=== PATIENT | female | born 1975 | race Caucasian/White ===

== ENCOUNTER → 2017-04-07 | Outpatient (CLI) | payer OTHER ==
[~2017-04-07] MED LIST: CEFTIN500 M1 PO; CHOLESTYRAM4 GM/9 GM PO; HYDROCODONE BIT1 T11 PO; IRBESARTAN150 MG PO; LEXAPRO10 MG PO; LISINOPRIL10 MG PO; LISINOPRIL40 MG PO; OMEPRAZOLE DR20 MG PO; VELIVET PO
== END | disposition home or self-care (01) ==
LOC: US 15:30
DX: M79.605 Pain in left leg (principal); R60.0 Localized edema; M79.89 Other specified soft tissue disorders

== ENCOUNTER 2017-08-18 18:06 | Emergency (ER) | payer OTHER ==
[~2017-08-18] VITALS: Ht 167.6 cm; Wt 113.4 kg
[2017-08-18 18:10] VITALS: BP 147/85
[2017-08-18] MEDS ORDERED: NAPROSYN500 MG PO (19:54)
== END 2017-08-18 20:03 | disposition home or self-care (01) ==
LOC: ED 18:06
DX: S60.221A Contusion of right hand, initial encounter (principal); S69.91XA Unspecified injury of right wrist, hand and finger(s), initial encounter; Z79.899 Other long term (current) drug therapy; W01.198A Fall on same level from slipping, tripping and stumbling with subsequent striking against other object, initial encounter; Y93.89 Activity, other specified; Y92.89 Other specified places as the place of occurrence of the external cause; Y99.9 Unspecified external cause status

== ENCOUNTER → 2017-11-08 | Outpatient (CLI) | payer OTHER ==
[~2017-11-08] MED LIST changes: +NAPROSYN500 MG PO
== END | disposition home or self-care (01) ==
LOC: RAD 10:31
DX: M54.5 Low back pain (principal); M79.604 Pain in right leg; R20.0 Anesthesia of skin

== ENCOUNTER → 2017-11-24 | Outpatient (CLI) | payer OTHER | END | disposition home or self-care (01) | LOC: MAMMO 11-16 15:00 | DX: Z12.31 Encounter for screening mammogram for malignant neoplasm of breast (principal) ==

== ENCOUNTER → 2017-12-01 | Outpatient (CLI) | payer OTHER | END | disposition home or self-care (01) | LOC: US 01:35 | DX: R92.8 Other abnormal and inconclusive findings on diagnostic imaging of breast (principal); N63.0 Unspecified lump in unspecified breast ==

== ENCOUNTER 2018-01-10 10:24 | Emergency (ER) | payer OTHER ==
[~2018-01-10] VITALS: Wt 117.5 kg
[2018-01-10 10:37] VITALS: BP 139/76
[2018-01-10 11:19] LABS: BILIRUBIN NEGATIVE (NEGATIVE); BLOOD 3+ (NEGATIVE); CLARITY CLOUDY (CLEAR); COLOR YELLOW (YELLOW); GLUCOSE NEGATIVE (NEGATIVE); KETONE NEGATIVE (NEGATIVE); LEUKO ESTERASE 2+ (NEGATIVE); NITRITE POSITIVE (NEGATIVE); SPECIFIC GRAVITY <= 1.005 (1.005-1.030)
[2018-01-10 11:32] LABS: BACTERIA 1+; WBC TNTC wbc/hpf (0-5)
[2018-01-10] MEDS ORDERED: SEPTDS PO (11:36)
[2018-01-10] MEDS ORDERED: PYRIDIUM200 M1 PO (11:36)
== END 2018-01-10 11:38 | disposition home or self-care (01) ==
LOC: ED 10:24
PROVIDERS: Nurse Practitioner Family
DX: N39.0 Urinary tract infection, site not specified (principal); R31.9 Hematuria, unspecified; Z79.899 Other long term (current) drug therapy

== ENCOUNTER → 2018-06-08 | Outpatient (CLI) | payer OTHER ==
[~2018-06-08] MED LIST changes: +CYCLOBENZAPRINE10 MG PO; +FIBRIK CAPSULE1 EACH PO; +MIRENA1 EACH IY; +OSTERA TABLET1 EACH PO; +PYRIDIUM200 M1 PO; +SEPTDS PO; +SINGULAIR4 MG PO
== END | disposition home or self-care (01) ==
LOC: MAMMO 08:38
DX: N63.0 Unspecified lump in unspecified breast (principal)

== ENCOUNTER → 2018-06-28 | Outpatient (CLI) | payer OTHER | END | disposition home or self-care (01) | LOC: US 14:58 | DX: N93.9 Abnormal uterine and vaginal bleeding, unspecified (principal) ==

== ENCOUNTER → 2018-09-20 | Outpatient (CLI) | payer OTHER ==
[2018-09-20 12:11] LABS: BASO % 0.3 % (0.0-1.0); EOS # 0.1 10*3/uL (0.0-0.4); EOS % 1.3 % (1.0-4.0); HEMATOCRIT 42.3 % (37.0-47.0); HEMOGLOBIN 13.8 g/dl (12.0-16.0); LYMPH # 2.1 10*3/uL (1.3-4.4); LYMPH % 29.7 % (27.0-41.0); MEAN CELL VOLUME 87.9 fl (81.0-99.0); MEAN CORPUSCULAR HGB 28.7 pg (27.0-31.0); MEAN CORPUSCULAR HGB CONC 32.6 g/dl (33.0-37.0); MEAN PLATELET VOLUME 9.6 fl (9.6-12.3); MONO # 0.6 10*3/uL (0.1-1.0); MONO % 8.6 % (3.0-9.0); NEUT # 4.2 10*3/uL (2.3-7.9); NEUT % 59.8 % (47.0-73.0); PLATELET COUNT AUTOMATED 277 10*3/uL (130-400); RED BLOOD COUNT 4.81 10*6/uL (4.10-5.10); WHITE BLOOD COUNT 7.1 10*3/uL (4.8-10.8)
[2018-09-20 12:49] LABS: B-hCG (QUALITATIVE) NEGATIVE (NEGATIVE); CHLORIDE 108 mmol/L (98-107); POTASSIUM 4.2 mmol/L (3.5-5.1); SODIUM 139 mmol/L (136-145)
[2018-09-20 12:50] LABS: ACT PARTIAL THROMBO TIME 25.9 SECONDS (20.8-31.5)
== END | disposition home or self-care (01) ==
LOC: LAB 10:06
PROVIDERS: Podiatrist
DX: M76.61 Achilles tendinitis, right leg (principal); G57.81 Other specified mononeuropathies of right lower limb

== ENCOUNTER 2018-09-21 17:46 | Emergency (ER) | payer OTHER ==
[~2018-09-21] VITALS: Wt 113.4 kg
[2018-09-21 17:46] VITALS: BP 140/74
[~2018-09-21 17:46] MED LIST changes: -CYCLOBENZAPRINE10 MG PO
[2018-09-21] MEDS ORDERED: CYCLOBENZAPRINE10 MG PO (18:43)
[2018-09-21] MEDS ORDERED: NAPROSYN500 MG PO (18:43)
== END 2018-09-21 18:53 | disposition home or self-care (01) ==
LOC: ED 17:46
DX: M54.2 Cervicalgia (principal); M54.6 Pain in thoracic spine; Z79.899 Other long term (current) drug therapy

== ENCOUNTER → 2018-09-27 | Outpatient (CLI) | payer OTHER ==
[~2018-09-27] MED LIST changes: +CYCLOBENZAPRINE10 MG PO
== END | disposition home or self-care (01) ==
LOC: RAD 11:03
DX: M40.292 Other kyphosis, cervical region (principal); M47.892 Other spondylosis, cervical region

== ENCOUNTER → 2018-09-28 | Day surgery (SDC) | payer OTHER ==
[2018-09-20 10:39] VITALS: BP 135/92
[~2018-09-28] MED LIST changes: +DOXYCYCLINE100 M3 PO; +Motrin,Rufen800 MG PO; +NORCO 5-325 TA1 EACH PO; +ULTRAM50 MG PO; +VENLAFAXINE HYD75 M3 PO; +XARELTO10 MG PO
== END | disposition home or self-care (01) ==
DX: S86.011A Strain of right Achilles tendon, initial encounter (principal); Z53.8 Procedure and treatment not carried out for other reasons; X58.XXXA Exposure to other specified factors, initial encounter; Y93.89 Activity, other specified; Y92.89 Other specified places as the place of occurrence of the external cause; Y99.8 Other external cause status

== ENCOUNTER → 2018-09-29 | Outpatient (CLI) | payer OTHER ==
[~2018-09-29] MED LIST changes: -DOXYCYCLINE100 M3 PO; -Motrin,Rufen800 MG PO; -NORCO 5-325 TA1 EACH PO; -ULTRAM50 MG PO; -VENLAFAXINE HYD75 M3 PO; -XARELTO10 MG PO
== END | disposition home or self-care (01) ==
LOC: RAD 10:49
DX: M25.511 Pain in right shoulder (principal)

== ENCOUNTER → 2018-11-16 | Day surgery (SDC) | payer OTHER ==
[~2018-11-16] VITALS: Ht 167.6 cm; Wt 113.4 kg
[~2018-11-16] MED LIST changes: +DOXYCYCLINE100 M3 PO; +Motrin,Rufen800 MG PO; +NORCO 5-325 TA1 EACH PO; +ULTRAM50 MG PO; +VENLAFAXINE HYD75 M3 PO; +XARELTO10 MG PO
--- NOTE | ~2018-11-16 | O ---
[place], [place] OPERATIVE NOTE NAME: RAVEN BURK [facility] #: [id number] UNIT #: [id number] ROOM: DOCTOR: MIL JIMMY JUAREZ BIRTHDATE: [birth year] DOS: 11/16/2018 SURGEON: Dr. Jaeger. OB GYN: 1. Pedro Morillo, fellow. 2. Sae Cooper, PGY-1. PREOPERATIVE DIAGNOSES: 1. Achilles tendinopathy. 2. Posterior calcaneal exostosis of the right. POSTOPERATIVE DIAGNOSES: 1. Achilles tendinopathy. 2. Posterior calcaneal exostosis of the right. PROCEDURE: 1. Bony debridement of the right calcaneus. 2. Deep compartment tendon transfer of the flexor hallucis longus tendon to the superficial compartment into the calcaneus of the right FHL transfer. DESCRIPTION OF PROCEDURE: The patient was seen in the preoperative holding area, appropriate site marking was performed. She and her family members agreed. She agreed to perioperative management and she agreed with the site marking as well. She was brought in the OR and placed on well-padded OR table where anesthesia was achieved. Once the anesthesia was achieved, appropriate timeout was performed, everybody in the room concurred with the timeout. Her right foot and leg were prepped and draped in usual sterile fashion. Hemostasis was accomplished by the mid-thigh tourniquet, which was inflated to 300 mmHg. Attention was directed to the right lower extremity. PROCEDURE #1: BONY DEBRIDEMENT OF THE RIGHT POSTERIOR CALCANEUS: Attention directed to posterior medial aspect of the right lower leg. Leg was externally rotated. A 6 cm incision was made posteromedially along the medial border Achilles tendon down to the calcaneus approximately 6 cm. It was deepened in the same plane using sharp and blunt dissection avoiding neurovascular structures. It was carried down to the Achilles tendon. At this time, there was some fibrotic diseased area of the Achilles tendon on the right. This was palpated and clinically until the diseased area was identified and excision of the Achilles tendon completely was performed, removing the diseased portion of fibrotic area of the Achilles tendon from the calcaneus and the proximal insertional pathological areas. At this point in time, this was carried down to bone, and under radiographs, the bone spurring was noted and using a large osteotome mallet, the bone was debrided. Bone was sent for pathology and the bone was completely excised from the all fibrous tissue, all inflammatory tissue as well as bone and degeneration of the posterior right calcaneus. PROCEDURE #2: TRANSFER OF THE FLEXOR HALLUCIS LONGUS TENDON FROM THE DEEP COMPARTMENT TO THE SUPERFICIAL COMPARTMENT INTO THE CALCANEUS: Attention was directed to the posterior medial incision site. This incision was deepened to [place], [place] OPERATIVE NOTE NAME: RAVEN BURK UNIT #: [id number] ROOM: DOCTOR: JIMMY JAEGER DPM BIRTHDATE: [birth year] the deep compartment of the right lower leg, where the deep fascia was incised. At this time, the flexor hallucis longus muscle and tendon were identified. Flexion of the great toe was identified assuring that this was the flexor hallucis longus tendon. At this point in time, dissection was carried more distal and deep protecting neurovascular bundles. At this point in time, with a great pull on the great toe and plantar flexion of the ankle joint, the maximal length of the flexor hallucis longus tendon was identified and this was tenotomized. At this point in time, with this tenotomized, this FHL tendon had a whipstitch applied by the Arthrex material, and at this point in time, under fluoroscopy guidance, a guidewire was inserted to the posterior aspect of the calcaneus for a transfer from the deep compartment to the superficial compartment of the right calcaneus. At this point in time, the flexor hallucis longus tendon transverse inserted dorsal to plantarly in the calcaneus. The ankle joint was held at 90 degrees with slight plantarflexion and tension. Her significant physiological pull on the FHL tendon at this time is 6.0 x 15 mm Arthrex interference screw was inserted into the calcaneus and fixated wonderfully with good tension on the area. Next, the remaining stump of the Achilles tendon was tenodesed to the flexor hallucis longus muscle belly. The area was flushed with copious amounts of sterile saline. Deep tissues were closed using 0 Vicryl and skin was closed using 2-0 nylon. The surgical wounds were dressed with Betadine-soaked Adaptic, 4 x 4s, Sherry in a sterile compression fashion. The tourniquet was deflated and good cap refill time was noted to return to all digits of right. A univalve BK cast was applied to her right lower extremity. She tolerated the procedure and anesthesia well and left the OR with vital signs stable and vascular status intact. JIMMY JAEGER DPM CM:OPRECORD:OPERATIVE NOTE [id number] JIMMY JAEGER DPM 11/30/18 0812 interface
--- NOTE | ~2018-11-16 | WRIGHTHP ---
[place], [place] PATIENT HISTORY AND PHYSICAL EXAM [id number] UN[facility] #: [id number] ROOM: DOCTOR: JIMMY JAEGER DPM BIRTHDATE: [birth year] DOS: 11/16/2018 INDICATIONS: The patient was seen for a longstanding foot pathology. More recently, she has a nonresponsive Achilles tendon and posterior calcaneal spur that is causing pain upon standing, ambulation and activity. The patient has failed all nonoperative care. At this point in time, consents for surgery of her right lower extremity. Surgery for debridement for the Achilles tendon, flexor hallucis longus tendon transfer, bone debridement right posterior heel, possible sural nerve decompression. With this in mind, she is aware of pros, cons, risks and benefits, overcorrection, undercorrection, recurrence, numbness, infection, failure. The patient states she is slightly better from previous surgery done by Dr. Ruff, but now the posterior heel is the area of most pain on the right. With this in mind, she understands the consent, she agrees to it. She understands there is artery, nerve, vein, tendon, ligament, bone, potential complications, anything can happen, nothing should happen. She understands the perioperative management. She understands using anticoagulation therapy, she agreed with that. She agreed to site marking and she also agreed with the consent as well as perioperative management. JIMMY JAEGER DPM CM:HISPHYS:PATIENT HISTORY AND PHYSICAL EXAMINATION [id number] JIMMY JAEGER DPM 11/30/18 0810 interface
--- NOTE | ~2018-11-16 | WRIGHTHP ---
[place], [place] PATIENT HISTORY AND PHYSICAL EXAM [id number] #: [id number] ROOM: DOCTOR: JIMMY JAEGER DPM BIRTHDATE: [birth year] DOS: 11/16/2018 LOWER EXTREMITY PHYSICAL EXAM VASCULAR: She has palpable pedal pulses 2/4 DP and PT bilaterally. Good cap refill time. NEUROLOGIC: She has intact epicritic sensation. She has some mild changes along the sural nerve in the right, but today she said it does not bother much and it is more of a musculoskeletal pain that she is experiencing on the right. DERMATOLOGIC: She has well-healed scars. Skin integrity is intact. MUSCULOSKELETAL: She has pain on palpation of the posterior medial calcaneus, posterior calcaneus and along the Achilles tendon approximately 4 cm proximal from the insertion of the calcaneus of the right. Orthopedic exam, the MRI demonstrates tendinopathy of the Achilles tendon as well as posterior bony spurring and pathology of the right. JIMMY JAEGER DPM CM:HISPHYS:PATIENT HISTORY AND PHYSICAL EXAMINATION 0350 JIMMY JAEGER DPM 11/17/18 0525 interface
[2018-11-16 08:00] VITALS: BP 158/92
[2018-11-16 10:40] VITALS: BP 143/88
[2018-11-16 10:55] VITALS: BP 132/66
[2018-11-16 11:10] VITALS: BP 128/66
[2018-11-16 11:24] VITALS: BP 171/86
[2018-11-16 11:35] VITALS: BP 137/73
== END | disposition home or self-care (01) ==
LOC: SDC 11-09 11:00
DX: M19.071 Primary osteoarthritis, right ankle and foot (principal); M76.61 Achilles tendinitis, right leg; M77.31 Calcaneal spur, right foot; I10 Essential (primary) hypertension; K21.9 Gastro-esophageal reflux disease without esophagitis; J45.909 Unspecified asthma, uncomplicated; F41.9 Anxiety disorder, unspecified; F32.9 Major depressive disorder, single episode, unspecified; E66.01 Morbid (severe) obesity due to excess calories; Z88.8 Allergy status to other drugs, medicaments and biological substances; Z98.890 Other specified postprocedural states; Z79.899 Other long term (current) drug therapy; Z68.41 Body mass index [BMI] 40.0-44.9, adult

== ENCOUNTER → 2019-11-13 | Outpatient (CLI) | payer OTHER | END | disposition home or self-care (01) | LOC: MAMMO 00:30 | DX: Z12.39 Encounter for other screening for malignant neoplasm of breast (principal) ==

== ENCOUNTER 2019-12-03 09:18 | Emergency (ER) | payer OTHER ==
[~2019-12-03] VITALS: Ht 167.6 cm; Wt 122.5 kg
[2019-12-03 09:21] VITALS: BP 140/76
[2019-12-03 10:11] LABS: BILIRUBIN NEGATIVE (NEGATIVE); BLOOD 3+ (NEGATIVE); CLARITY CLOUDY (CLEAR); COLOR YELLOW (YELLOW); GLUCOSE NEGATIVE (NEGATIVE); KETONE NEGATIVE (NEGATIVE); SPECIFIC GRAVITY 1.015 (1.005-1.030)
[2019-12-03 10:12] LABS: LEUKO ESTERASE 2+ (NEGATIVE); NITRITE NEGATIVE (NEGATIVE); UROBILINOGEN 0.2 E.U./dl (0.2-1.0)
[2019-12-03 10:17] LABS: BACTERIA 4+; EPITHELIAL CELLS 35-40; RBC TNTC rbc/hpf (0-2); WBC TNTC wbc/hpf (0-5)
[2019-12-03] MEDS ORDERED: SEPTDS PO (10:22)
== END 2019-12-03 10:24 | disposition home or self-care (01) ==
LOC: ED 09:18
PROVIDERS: Nurse Practitioner Family
DX: N39.0 Urinary tract infection, site not specified (principal); Z79.899 Other long term (current) drug therapy

== ENCOUNTER → 2020-04-09 | Outpatient (CLI) | payer OTHER | END | disposition home or self-care (01) | LOC: US 01:02 | DX: N88.8 Other specified noninflammatory disorders of cervix uteri (principal); Z90.721 Acquired absence of ovaries, unilateral ==

== ENCOUNTER → 2020-08-01 | Outpatient (CLI) | payer OTHER ==
[~2020-08-01] MED LIST changes: +HYDROCODONE-AC1 EAC1 PO; +IBU800 M1 PO; +Synthroid,Levo50 MCG PO; +WELLBUTRIN SR150 MG PO
== END | disposition home or self-care (01) ==
LOC: COVID19 00:26
PROVIDERS: ATTEND Obstetrics & Gynecology
DX: Z01.812 Encounter for preprocedural laboratory examination (principal); Z20.828 Contact with and (suspected) exposure to other viral communicable diseases

== ENCOUNTER 2020-08-06 08:35 | Inpatient (IN) | payer OTHER ==
[2020-08-01 14:50] VITALS: BP 165/100
[~2020-08-06] VITALS: Ht 167.6 cm; Wt 125.6 kg
[2020-08-06] VITALS (8 sets, daily range): BP systolic 122–155; BP diastolic 68–91
[~2020-08-06 08:35] MED LIST changes: -HYDROCODONE-AC1 EAC1 PO; -IBU800 M1 PO
--- NOTE | 2020-08-06 14:05 | NUR ---
Time: 1404 A 44 year old FEMALE admitted to under services of ALEXANDRA KIDD DO. Pt. arrived via stretcher from [place]. Chief complaint: S/P HYSTERECTOMY . MARIA LUZ NIÑO
--- NOTE | 2020-08-06 18:07 | NUR ---
PT REQUESTED AND GIVEN NORCO FOR C/O ABD PAIN PT RATES PAIN 04/19 WILL MONITOR
--- NOTE | 2020-08-06 20:30 | NUR ---
RESTING WITH HOB ELEVATED, WATCHING TV. RESPIRATIONS EASY. LUNGS DIMINISHED, CLEAR. PULSE OX 95% RA. ABD SOFT WITH NORMO BS, 4 SURG SITES NOTED WITH GLUE INTACT. ESPINOSA PATENT. SCDS APPLIED TO BLE. IV FLUIDS INFUSING PER ORDER. CALL LIGHT WITHIN REACH. NO VOICED COMPLAINTS
--- NOTE | 2020-08-06 23:14 | NUR ---
24 HR chart check completed.
--- NOTE | 2020-08-06 23:24 | NUR ---
NORCO PROVIDED PER PRN ORDER FOR COMPLAINTS OF ABD PAIN RATING A 6. CALL LIGHT WITHIN REACH. WILL MONITOR
[2020-08-07] VITALS: BP 131/84
--- NOTE | 2020-08-07 00:15 | NUR ---
MEDS APPEAR EFFECTIVE. RESTING WITH EYES CLOSED. RESPIRATIONS EASY. VSS. IV FLUIDS MAINTAINED. CALL LIGHT WITHIN REACH
--- NOTE | 2020-08-07 02:45 | NUR ---
DROWSY. ROUTINE TORADOL PROVIDED.
--- NOTE | 2020-08-07 05:20 | NUR ---
MEDICATED WITH NORCO PER PRN ORDER FOR COMPLAINTS OF ABD SORENESS RATING A 5. CALL LIGHT WITHIN REACH. WILL MONITOR
--- NOTE | 2020-08-07 06:00 | NUR ---
STATES RELIEF FROM EARLIER TALLULA.
--- NOTE | 2020-08-07 06:10 | NUR ---
ESPINOSA D/C'D PER ORDER. PATIENT TOLERATED WELL. SCANT AMOUNT OF OLD [place] BLOOD NOTED ON PAD. ASSISTED TO BR TO VOID. PATIENT WISHES TO SHOWER, ASSISTED TO SHOWER BENCH AND PROVIDED WITH ALL NECESSARY SUPPLIES. INSTRUCTED TO CALL FOR ASSIST IF NECESSARY OR WHEN READY TO RETURN TO BED. VOICED UNDERSTANDING
[2020-08-07 06:37] LABS: BASO % 0.1 % (0.0-1.0); EOS % 0.1 % (1.0-4.0); HEMATOCRIT 41.7 % (37.0-47.0); LYMPH # 2.2 10*3/uL (1.3-4.4); MEAN CELL VOLUME 89.5 fl (81.0-99.0); MEAN CORPUSCULAR HGB 28.5 pg (27.0-31.0); MEAN CORPUSCULAR HGB CONC 31.9 g/dl (33.0-37.0); MEAN PLATELET VOLUME 9.8 fl (9.6-12.3); MONO # 1.2 10*3/uL (0.1-1.0); MONO % 9.9 % (3.0-9.0); NEUT # 8.7 10*3/uL (2.3-7.9); NEUT % 71.6 % (47.0-73.0); PLATELET COUNT AUTOMATED 331 10*3/uL (130-400); RED BLOOD COUNT 4.66 10*6/uL (4.10-5.10); RED CELL DISTRI WIDTH 12.2 % (0-14.5); WHITE BLOOD COUNT 12.1 10*3/uL (4.8-10.8)
--- NOTE | 2020-08-07 07:50 | NUR ---
PATIENT RETURNED TO BED. DR HANEY PRESENT TO ASSESS PATIENT AND DISCUSS PLAN OF CARE. PER DR HANEY, OK TO D/C IVF. PATIENT OK TO BE D/C'D TODAY
[2020-08-07] MEDS ORDERED: HYDROCODONE-AC1 EAC1 PO (08:11)
[2020-08-07] MEDS ORDERED: IBU800 M1 PO (08:11)
--- NOTE | 2020-08-07 10:50 | NUR ---
Discharge instructions reviewed with patient/family. Patient receptive and verbalizes understanding. Follow-up care arranged. Written instructions given to patient/family. EZEKIEL NOLASCO
== END 2020-08-07 10:50 | disposition home or self-care (01) | DRG 513 ==
LOC: SDC 08:35 → 5E 08:47 → SDC 09:30 → 5E 08-07 10:50
PROVIDERS: ADMIT Obstetrics & Gynecology; ATTEND Obstetrics & Gynecology
PROC: 0UT98ZZ Resection of Uterus, Via Natural or Artificial Opening Endoscopic (ICD-10-PCS; principal; 2020-08-06)
DX: N93.9 Abnormal uterine and vaginal bleeding, unspecified (principal); N83.202 Unspecified ovarian cyst, left side; G89.29 Other chronic pain; R10.2 Pelvic and perineal pain; Z79.899 Other long term (current) drug therapy

== ENCOUNTER → 2021-01-06 | Outpatient (CLI) | payer OTHER ==
[~2021-01-06] MED LIST changes: +HYDROCODONE-AC1 EAC1 PO; +IBU800 M1 PO
== END | disposition home or self-care (01) ==
LOC: MAMMO 00:09
PROVIDERS: ATTEND Internal Medicine
DX: Z12.31 Encounter for screening mammogram for malignant neoplasm of breast (principal); N64.89 Other specified disorders of breast

== ENCOUNTER 2021-07-09 05:27 | Inpatient (IN) | payer OTHER ==
[~2021-07-09] VITALS: Wt 117.0 kg
[2021-07-09 05:28] VITALS: BP 131/79
[2021-07-09 06:53] LABS: HEMATOCRIT 45.2 % (37.0-47.0); LYMPH % 18.1 % (27.0-41.0); MEAN CELL VOLUME 85.9 fl (81.0-99.0); MEAN CORPUSCULAR HGB 29.3 pg (27.0-31.0); MEAN CORPUSCULAR HGB CONC 34.1 g/dl (33.0-37.0); MEAN PLATELET VOLUME 10.2 fl (9.6-12.3); MONO # 0.3 10*3/uL (0.1-1.0); MONO % 5.8 % (3.0-9.0); NEUT # 4.1 10*3/uL (2.3-7.9); NEUT % 75.7 % (47.0-73.0); PLATELET COUNT AUTOMATED 145 10*3/uL (130-400); RED BLOOD COUNT 5.26 10*6/uL (4.10-5.10); RED CELL DISTRI WIDTH 12.4 % (0-14.5); WHITE BLOOD COUNT 5.4 10*3/uL (4.8-10.8)
[2021-07-09 07:05] LABS: ALBUMIN 3.3 gm/dl (3.1-4.5); ALKALINE PHOSPHATASE 98 U/L (45-117); BUN 5 mg/dl (7-24); CHLORIDE 100 mmol/L (98-107); CPK 402 U/L (26-192); CREATININE 0.84 mg/dL (0.55-1.02); LDH 354 U/L (84-246); POTASSIUM 2.9 mmol/L (3.5-5.1); SGOT/AST 90 IU/L (3-35); SGPT/ALT 80 U/L (12-78); SODIUM 132 mmol/L (136-145); TOTAL PROTEIN 8.1 gm/dL (6.4-8.2)
[2021-07-09 07:24] VITALS: BP 122/89
[2021-07-09 13:16] VITALS: BP 111/74
[2021-07-09] MEDS ORDERED: NEURONTIN300 MG PO (13:42)
[2021-07-09] MEDS ORDERED: ZOLPIDEM10 MG PO (13:43)
[2021-07-10] VITALS: BP 114/67
[2021-07-10 07:02] LABS: HEMATOCRIT 42.8 % (37.0-47.0); LYMPH # 1.1 10*3/uL (1.3-4.4); MEAN CELL VOLUME 86.6 fl (81.0-99.0); MEAN CORPUSCULAR HGB 28.9 pg (27.0-31.0); MEAN CORPUSCULAR HGB CONC 33.4 g/dl (33.0-37.0); MEAN PLATELET VOLUME 10.1 fl (9.6-12.3); MONO # 0.5 10*3/uL (0.1-1.0); MONO % 12.4 % (3.0-9.0); NEUT # 2.1 10*3/uL (2.3-7.9); NEUT % 56.3 % (47.0-73.0); PLATELET COUNT AUTOMATED 155 10*3/uL (130-400); RED BLOOD COUNT 4.94 10*6/uL (4.10-5.10); RED CELL DISTRI WIDTH 12.6 % (0-14.5); WHITE BLOOD COUNT 3.6 10*3/uL (4.8-10.8)
[2021-07-10 07:12] LABS: BUN 9 mg/dl (7-24); CHLORIDE 106 mmol/L (98-107); CREATININE 0.85 mg/dL (0.55-1.02); POTASSIUM 3.2 mmol/L (3.5-5.1); SODIUM 138 mmol/L (136-145)
[2021-07-10 08:00] VITALS: BP 110/90
[2021-07-10 12:00] VITALS: BP 108/56; BP 120/54
[2021-07-10 16:00] VITALS: BP 113/72
[2021-07-10 20:00] VITALS: BP 103/66
[2021-07-11 00:57] VITALS: BP 111/67
[2021-07-11 08:00] VITALS: BP 107/64
[2021-07-11] MEDS ORDERED: CHOLESTYRAMINE P4 GM PO (09:41)
[2021-07-11 12:00] VITALS: BP 114/67
[2021-07-11 14:24] LABS: BASO % 0.3 % (0.0-1.0); HEMATOCRIT 42.3 % (37.0-47.0); LYMPH # 0.8 10*3/uL (1.3-4.4); LYMPH % 22.2 % (27.0-41.0); MEAN CELL VOLUME 86.2 fl (81.0-99.0); MEAN CORPUSCULAR HGB 29.1 pg (27.0-31.0); MEAN CORPUSCULAR HGB CONC 33.8 g/dl (33.0-37.0); MEAN PLATELET VOLUME 10.2 fl (9.6-12.3); MONO # 0.3 10*3/uL (0.1-1.0); MONO % 9.6 % (3.0-9.0); NEUT # 2.4 10*3/uL (2.3-7.9); NEUT % 67.3 % (47.0-73.0); RED BLOOD COUNT 4.91 10*6/uL (4.10-5.10); RED CELL DISTRI WIDTH 12.4 % (0-14.5); WHITE BLOOD COUNT 3.6 10*3/uL (4.8-10.8)
[2021-07-11 14:34] LABS: PLATELET COUNT AUTOMATED 209 10*3/uL (130-400)
[2021-07-11 14:40] LABS: BUN 10 mg/dl (7-24); CHLORIDE 104 mmol/L (98-107); CREATININE 0.95 mg/dL (0.55-1.02); POTASSIUM 3.3 mmol/L (3.5-5.1); SODIUM 138 mmol/L (136-145)
[2021-07-11 16:00] VITALS: BP 112/56
[2021-07-11 20:00] VITALS: BP 117/75; BP 133/85
[2021-07-12] VITALS: BP 118/74; BP 137/80
[2021-07-12 08:00] VITALS: BP 118/70
[2021-07-12 12:00] VITALS: BP 114/52
[2021-07-12 16:00] VITALS: BP 123/64
[2021-07-12 20:00] VITALS: BP 120/80
[2021-07-13] VITALS: BP 112/76
[2021-07-13 06:32] LABS: BASO % 0.2 % (0.0-1.0); HEMATOCRIT 39.3 % (37.0-47.0); LYMPH # 1.8 10*3/uL (1.3-4.4); LYMPH % 28.8 % (27.0-41.0); MEAN CELL VOLUME 86.9 fl (81.0-99.0); MEAN CORPUSCULAR HGB CONC 33.3 g/dl (33.0-37.0); MEAN PLATELET VOLUME 10.3 fl (9.6-12.3); MONO # 0.9 10*3/uL (0.1-1.0); MONO % 14.2 % (3.0-9.0); NEUT # 3.5 10*3/uL (2.3-7.9); NEUT % 55.5 % (47.0-73.0); PLATELET COUNT AUTOMATED 246 10*3/uL (130-400); RED BLOOD COUNT 4.52 10*6/uL (4.10-5.10); RED CELL DISTRI WIDTH 12.1 % (0-14.5); WHITE BLOOD COUNT 6.3 10*3/uL (4.8-10.8)
[2021-07-13 06:54] LABS: CHLORIDE 107 mmol/L (98-107); POTASSIUM 3.3 mmol/L (3.5-5.1); SODIUM 140 mmol/L (136-145)
[2021-07-13 07:03] LABS: ALBUMIN 2.7 gm/dl (3.1-4.5); ALKALINE PHOSPHATASE 64 U/L (45-117); BUN 13 mg/dl (7-24); CREATININE 0.68 mg/dL (0.55-1.02); SGOT/AST 34 IU/L (3-35); SGPT/ALT 61 U/L (12-78); TOTAL PROTEIN 6.3 gm/dL (6.4-8.2)
[2021-07-13 08:00] VITALS: BP 122/83
[2021-07-13 12:00] VITALS: BP 126/80
[2021-07-13] MEDS ORDERED: DECADRON4 MG PO (15:39)
== END 2021-07-13 18:25 | disposition home or self-care (01) | DRG 137 ==
LOC: ED 05:27 → EDHOLD 10:59 → 4E 10:59 → EDHOLD 11:03 → 4E 21:42
PROVIDERS: Emergency Medicine; Internal Medicine Nephrology; Podiatrist; ADMIT Internal Medicine; ATTEND Internal Medicine
PROC: XW033E5 Introduction of Remdesivir Anti-infective into Peripheral Vein, Percutaneous Approach, New Technology Group 5 (ICD-10-PCS; principal; 2021-07-10)
DX: U07.1 COVID-19 (principal); J12.82 Pneumonia due to coronavirus disease 2019; E87.1 Hypo-osmolality and hyponatremia; N39.0 Urinary tract infection, site not specified; S69.90XA Unspecified injury of unspecified wrist, hand and finger(s), initial encounter; S69.91XA Unspecified injury of right wrist, hand and finger(s), initial encounter; M54.9 Dorsalgia, unspecified; R65.11 Systemic inflammatory response syndrome (SIRS) of non-infectious origin with acute organ dysfunction; X58.XXXA Exposure to other specified factors, initial encounter; N93.9 Abnormal uterine and vaginal bleeding, unspecified; G89.18 Other acute postprocedural pain; R73.9 Hyperglycemia, unspecified; E87.6 Hypokalemia; J96.01 Acute respiratory failure with hypoxia; Z90.710 Acquired absence of both cervix and uterus; Z79.1 Long term (current) use of non-steroidal anti-inflammatories (NSAID); Z79.899 Other long term (current) drug therapy; Y93.89 Activity, other specified; Y92.89 Other specified places as the place of occurrence of the external cause; Y99.8 Other external cause status

== ENCOUNTER → 2021-08-15 | Outpatient (CLI) | payer OTHER ==
[~2021-08-15] MED LIST changes: +CHOLESTYRAMINE P4 GM PO; +DECADRON4 MG PO; +NEURONTIN300 MG PO; +ZOLPIDEM10 MG PO
[2021-08-15 11:42] LABS: THYROID STIM HORMONE (HS) 2.89 uIU/ml (0.358-4.75)
== END | disposition home or self-care (01) ==
LOC: LAB 09:50
PROVIDERS: ATTEND Internal Medicine
DX: I10 Essential (primary) hypertension (principal); E03.9 Hypothyroidism, unspecified; U07.1 COVID-19

== ENCOUNTER → 2022-01-14 | Outpatient (CLI) | payer OTHER | END | disposition home or self-care (01) | LOC: MAMMO 02:51 | PROVIDERS: ATTEND Internal Medicine | DX: Z12.31 Encounter for screening mammogram for malignant neoplasm of breast (principal) ==

== ENCOUNTER → 2022-08-03 | Outpatient (CLI) | payer OTHER | END | disposition home or self-care (01) | LOC: ORTHO 01:51 | PROVIDERS: ATTEND Orthopaedic Surgery | DX: M25.522 Pain in left elbow (principal) ==

== ENCOUNTER → 2022-12-31 | Outpatient (CLI) | payer OTHER | END | disposition home or self-care (01) | LOC: RAD 11:29 | PROVIDERS: ATTEND Internal Medicine | DX: M47.816 Spondylosis without myelopathy or radiculopathy, lumbar region (principal); M25.78 Osteophyte, vertebrae; M54.2 Cervicalgia ==

== ENCOUNTER → 2024-03-02 | Outpatient (CLI) | payer OTHER | END | disposition home or self-care (01) | LOC: MAMMO 00:14 | PROVIDERS: ATTEND Internal Medicine | DX: Z12.31 Encounter for screening mammogram for malignant neoplasm of breast (principal); N63.11 Unspecified lump in the right breast, upper outer quadrant ==